=== PATIENT | male | born 1985 | race Caucasian/White ===

== ENCOUNTER 2025-05-31 22:04 | Emergency (ER) | payer BC, SELFPAY ==
[2025-05-31 22:05] VITALS: BP 167/111
[2025-05-31 22:16] VITALS: BMI 26.5
--- NOTE | 2025-05-31 22:16 | EDRN ---
Pt feels he is having an allergic reaction because his body got red, itchy and bumpy, he had sob and shaking and his hands hurt. Symptoms started 1 hour ago after he injected tesamorelin. Pt has used this medication previously. Pt feels better
now, still feels shaky. Rash gone. Pt vomited shortly after symptoms started. No trouble swallowing/throat swelling. Pt talking in full sentences. Pt says he will not use this medication again.
[2025-05-31 22:20] VITALS: BP 134/85
[2025-05-31 23:00] VITALS: BP 118/82
--- NOTE | 2025-05-31 23:21 | ED.GENMED ---
History of Present Illness
General
Chief Complaint: Allergic Reaction
Time Seen by Provider: 05/31/25 22:15
History of Present Illness
History of Present Illness:
39-year-old male presents to the emergency department for evaluation of chest tightness, rash, and vomiting that began shortly after injecting himself with tesamorelin. He took diphenhydramine shortly thereafter and arrived to the ER feeling
improved. He has been using this for the past 3 weeks repeatedly with no similar events. Denies any prior history of anaphylaxis or angioedema
Review of Systems
Review of Systems
Allergies reviewed?: Yes
All Other Systems: ROS reviewed and negative except as documented in HPI and ROS
Phy Exam
Physical Exam
Physical Exam:
GEN: Well appearing, NAD, WDWN
HEENT: Oral mucosa moist, no scleral icterus
Cardiac: Regular rate and rhythm, no murmur
Lung: No respiratory distress, no tachypnea, lungs clear to auscultation
MSK: No gross deformity or injuries
Skin: Good color, no pallor or jaundice, no rashes
Neuro: AO x3, moves all extremities freely
Psych: Calm, cooperative
Course
Vital Signs
Initial and Last Documented VS:
Initial Vital Signs
Temp Pulse Resp BP Pulse Ox
97.9 F 88 15 167/111 99
05/31/25 22:05 05/31/25 22:05 05/31/25 22:05 05/31/25 22:05 05/31/25 22:05
Last Documented Vital Signs
Temp Pulse Resp BP Pulse Ox
97.9 F 88 16 118/82 98
05/31/25 22:05 05/31/25 23:00 05/31/25 23:00 05/31/25 23:00 05/31/25 23:21
MDM/Problems Addressed
MDM/Problems Addressed:
Clinically well in the ED, observed with no evidence of recurrent symptoms, advised to discontinue use of this peptide
*Pulse Oximetry
SaO2: 98
Oxygen Mode of Delivery: Room air
Patient hypoxic: no
*Critical Care Note
Total Time (30-74mins, 75-104mins- exclusive of procedures): Not Applicable
ED Attending Note
-
Portions of this chart may have been created with voice recognition software.� Occasional wrong word or��sound alike� substitutions may have occurred due to the inherent limitations of voice recognition software.
Discharge Plan
Departure
Patient Disposition: Home (Routine Discharge)
Date of Disposition: 05/31/25
Time of Disposition: 23:21
Patient with high blood pressure during this ER visit?: No
Discharge Problem:
Allergic reaction
Instructions: Adverse Drug Reactions, Adult (DC)
Prescriptions:
No Action
No Current Medications
0
Referrals:
Veronica Arroyo MD [Family Provider, Internal Medicine]
Interventions
Interventions:
*Risk Screen - Suicide Last Done: 05/31/25 22:05
*General Assessment Last Done: 05/31/25 22:05
*Neglect/Abuse Screening Last Done: 05/31/25 22:05
*ED- Fall Risk Assessment Last Done: 05/31/25 22:20
*ED COVID-19 Vaccine History Last Done: 05/31/25 22:05
*Nursing Disposition Last Done: 05/31/25 23:25
ED- Cardiac Assessment Last Done: 05/31/25 22:22
ED- Pulmonary Assessment Last Done: 05/31/25 22:22
ED-Skin Assessment Last Done: 05/31/25 22:22
Discharge Date and Time
Discharge Date/Time: 05/31/25 23:25
Print Language: [place]
== END 2025-05-31 23:25 | disposition home or self-care (01) ==
LOC: EMR 22:04
PROVIDERS: EMERGENCY PHYSICIAN Student in an Organized Health Care Education/Training Program; FAMILY PHYSICIAN Internal Medicine
DX: T78.40XA Allergy, unspecified, initial encounter (principal); Y92.9 Unspecified place or not applicable
CPT/HCPCS: 99282